=== PATIENT | female | born 1965 | race African-American/Black ===

== ENCOUNTER 2022-04-15 11:15 | Outpatient (REF) | payer OTHER, SELFPAY ==
[2022-04-15 13:44] LABS: Hematocrit 40.2 % (37.0-47.0); Hemoglobin 13.2 g/dl (12.0-16.0); Mean Corpuscular HGB Conc 32.8 g/dl (31.0-35.0); Mean Corpuscular Hemoglobin 26.7 pg (27.0-33.0); Mean Corpuscular Volume 81.4 fL (80.0-98.0); Mean Platelet Volume 12.3 fL (9.4-12.3); Platelet Count 172 X10*3/uL (160-400); Red Blood Count 4.94 X10*6/uL (4.20-5.50); White Blood Count 5.4 X10*3/uL (4.8-10.8)
[2022-04-15 13:59] LABS: Estimated Average Glucose 249 mg/dL; Hemoglobin A1c % 10.3 %
[2022-04-15 14:01] LABS: Alanine Aminotransferase 20 U/L (0-31); Albumin Level 4.8 g/dL (3.5-5.0); Alkaline Phosphatase 65 U/L (39-117); Anion Gap 15 (12-20); Aspartate Amino Transferase 19 U/L (5-31); Blood Urea Nitrogen 14 mg/dL (9-16); Calcium 10.4 mg/dL (8.4-10.2); Carbon Dioxide 28 mmol/L (22-29); Chloride 101 mmol/L (96-108); Cholesterol 265 mg/dL; Estimated Glomerular Filt Rate > 60; Glucose Fasting 229 mg/dL (60-99); HDL Cholesterol 62 mg/dL; LDL Cholesterol Calculated 168 mg/dl; Potassium 4.7 mmol/L (3.3-5.1); Sodium 139 mmol/L (135-145); Total Protein 8.3 g/dL (6.5-8.0); Triglycerides 176 mg/dL
[2022-04-15 14:35] LABS: Creatinine Urine 36.73 mg/dL; Microalbumin Urine < 5.0 mg/L
[2022-04-15 14:40] LABS: Thyroid Stimulating Hormone 0.95 uIU/mL (0.32-4.0)
== END 2022-04-15 11:16 | disposition home or self-care (01) ==
LOC: HO.10HDL 11:15
PROVIDERS: Visit Provider Internal Medicine
DX: Z00.01 Encounter for general adult medical examination with abnormal findings (principal); I10 Essential (primary) hypertension; E78.00 Pure hypercholesterolemia, unspecified; E11.65 Type 2 diabetes mellitus with hyperglycemia; E11.40 Type 2 diabetes mellitus with diabetic neuropathy, unspecified
CPT/HCPCS: 36415; 80053; 80061; 82043; 83036; 84443; 85027

== ENCOUNTER 2022-10-20 10:02 | Outpatient (REF) | payer OTHER, SELFPAY ==
[2022-10-20 12:32] LABS: Estimated Average Glucose 160 mg/dL; Hemoglobin A1c % 7.2 %
[2022-10-20 12:38] LABS: Alanine Aminotransferase 28 U/L (0-31); Alkaline Phosphatase 69 U/L (39-117); Anion Gap 12 (12-20); Aspartate Amino Transferase 24 U/L (5-31); Blood Urea Nitrogen 11 mg/dL (9-16); Calcium 9.1 mg/dL (8.4-10.2); Carbon Dioxide 27 mmol/L (22-29); Chloride 105 mmol/L (96-108); Cholesterol 127 mg/dL; Estimated Glomerular Filt Rate > 60; Glucose Random 120 mg/dL (60-115); HDL Cholesterol 56 mg/dL; LDL Cholesterol Calculated 60 mg/dl; Potassium 4.2 mmol/L (3.3-5.1); Sodium 140 mmol/L (135-145); Total Protein 6.8 g/dL (6.5-8.0); Triglycerides 56 mg/dL
== END 2022-10-20 10:03 | disposition home or self-care (01) ==
LOC: HO.WFDLDS 10:02
PROVIDERS: Visit Provider Internal Medicine
DX: E11.9 Type 2 diabetes mellitus without complications (principal); E78.00 Pure hypercholesterolemia, unspecified; G56.00 Carpal tunnel syndrome, unspecified upper limb; I10 Essential (primary) hypertension
CPT/HCPCS: 36415; 80053; 80061; 83036

== ENCOUNTER 2022-12-11 09:56 | Outpatient (REF) | payer OTHER, SELFPAY ==
--- NOTE | 2022-12-11 10:08 | EMG_ITS ---
Bilateral median and ulnar motor and sensory studies were performed. Bilateral radial sensory studies were performed, and paraspinal muscles were tested with a needle. IMPRESSION: 1. Moderately severe bilateral median neuropathy across carpal tunnel. 2. [id number]-[id number] left ulnar neuropathy across cubital tunnel. MD NAVEED Jasmine/ROLANDO / [id number]
== END 2022-12-11 09:57 | disposition home or self-care (01) ==
LOC: HO.NEURO 09:56
PROVIDERS: PCP Internal Medicine; Visit Provider Internal Medicine
DX: G56.03 Carpal tunnel syndrome, bilateral upper limbs (principal)
CPT/HCPCS: 95886; 95911

== ENCOUNTER 2023-03-18 08:56 | Outpatient (AMB) | payer OTHER, SELFPAY ==
--- NOTE | 2023-03-18 09:02 | MHC.OFFVIS ---
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 States symptoms started about 3 years ago and has worsen since. Patient has not had an injection in her hands in the past . States her CTS comes and goes thought out the day time. EMG done. Patient would like to discuss surgery vs injection. 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 She is accompanied by her daughter today, who acts as a dry cleaner hand She complains of numbness in the median nerve distribution bilaterally. She denies numbness in the ulnar nerve distribution bilaterally. Her symptoms are intermittent, but daily, and worse at night. She says her numbness began ~3 years ago, and she denies any prior treatment. [facility] Social History (Updated 03/18/23 @ 09:17 by EMHRDAD Munroe) Current occupational status: unemployed Current occupation: ambidextrous Review of Systems Const All systems reviewed & are unremarkable except as noted in HPI and below Physical Exam Vital Signs: BMI result Body Mass Index 25.2 Const General: cooperative, healthy appearing and no acute distress Orientation/consciousness: patient oriented x3 HEENT Head: Yes normocephalic and Yes atraumatic Eyes EOM: EOMs intact bilaterally Resp Effort & Inspection: normal respiratory effort and able to speak in complete sentences Cardio Jugular venous distension: no JVD Skin General skin exam: turgor normal Rashes: no rashes Neuro General: patient oriented x3 Extrem Other: Evaluation of Bilateral Upper Extremity: The patient is alert, oriented, and in no acute distress Neuro: Decreased subjective sensation in the median nerve distribution bilaterally. Normal sensation in the ulnar nerve distribution bilaterally No thenar or intrinsic wasting Good APB muscle belly firing and good finger cross Vascular: Cap refill brisk ROM: She can make a fist and extend all her digits No locking or catching Skin: No lacerations or abrasions. General: No Ecchymosis. No Erythema or evidence of infection. Nerve Conduction Study: IMPRESSION:? 1. Moderately severe bilateral median neuropathy across carpal tunnel. 2. Hypt-lk-[id number] left ulnar neuropathy across cubital tunnel. Ana Lilia Funez MD 12/11/2022 Psych Appearance: grossly normal Affect: normal affect Attitude: cooperative Assessment & Plan Assessment & Plan (1) Carpal tunnel syndrome of right wrist: Code(s): G56.01 - Carpal tunnel syndrome, right upper limb (2) Carpal tunnel syndrome of left wrist: Code(s): G56.02 - Carpal tunnel syndrome, left upper limb (3) Cubital tunnel syndrome on left: Code(s): G56.22 - Lesion of ulnar nerve, left upper limb Plan Assessment & Plan: 1. Left Carpal tunnel syndrome, moderate-severe Symptoms intermittent, but daily, worse at night 2. LRight Carpal tunnel syndrome, moderate-severe Symptoms intermittent, but daily, worse at night I educated her about this condition I discussed operative and non-operative treatment options The patient would like to proceed with surgery, beginning with the left side The risks and benefits of operative treatment were discussed with the patient and the patient wishes to proceed with surgery. These risks include, but are not limited to risk of damage to blood vessels, nerves, tendons, infection, recurrence, incomplete relief of preoperative symptoms, persistent pain, possible need for further surgery and the risks associated with regional blocks and anesthesia. The plan is to take the patient to the operating room sometime in the next few weeks for the following procedures: 1. Left carpal tunnel release, under local All of the preoperative paperwork including the consent was filled out today. All the patient's questions were answered. The patient understands that they will be contacted by our care team coordinator scheduler soon to schedule this procedure She denies blood thinners, asthma, heart, lung, kidney issues She is a Diabetic, her most recent HgA1c was 7.2% on 10/20/22 3. Left Cubital tunnel syndrome, mild to moderate Patient denies any problems with numbness in the ulnar aspect of her left hand or small finger If she develops any new numbness or if her symptoms increase in frequency or severity she knows to contact the clinic to discuss treatment options Scribed for Kiersten Coats MD by Modesto Pozo, director medical safety, on 8/23/23 at 9:20 AM, EST. Coding Level of Care Code New Pt Level 4 (89822) Diagnoses Carpal tunnel syndrome of right wrist G56.01 Carpal tunnel syndrome of left wrist G56.02 Cubital tunnel syndrome on left G56.22
[2023-03-18 09:09] VITALS: BMI 25.2
== END 2023-03-18 09:52 | disposition home or self-care (01) ==
PROVIDERS: PCP Internal Medicine; Visit Provider Orthopaedic Surgery
DX: G56.03 Carpal tunnel syndrome, bilateral upper limbs (principal); G56.22 Lesion of ulnar nerve, left upper limb
CPT/HCPCS: 99204

== ENCOUNTER → 2023-03-18 08:56 | Outpatient (BNVA) | payer OTHER, SELFPAY | PROVIDERS: PCP Internal Medicine; Visit Provider Orthopaedic Surgery | DX: G56.03 Carpal tunnel syndrome, bilateral upper limbs (principal); G56.22 Lesion of ulnar nerve, left upper limb | CPT/HCPCS: 99202 ==

== ENCOUNTER 2023-04-20 11:20 | Day surgery (SDC) | payer OTHER, SELFPAY ==
[2023-04-20 11:50] VITALS: BMI 25.2
[2023-04-20 11:51] VITALS: BP 135/70; PULSE 86; RESP 16; TEMP 36.3; O2SAT 98
--- NOTE | 2023-04-20 12:12 | MHC.SHP ---
Pre-Procedural Eval Section A Date of Service: 04/20/23 The patient is an INPATIENT: No Changes since office visit: No Cold of Flu in the past 2 weeks, No New Medical Problems, No Changes in Medication and No Patient answered all questions The History & Physical has been completed within 30 days and I have reviewed it.: Yes Section B Chief Complaint: Carpal tunnel syndrome, left upper limb Allergies: Allergies Allergy/AdvReac Type Severity Reaction Status Date / Time No Known Allergies Allergy Verified 03/18/23 09:16 Plan I have reviewed the history and physical and performed a pertinent physical examination on my patient. No changes have occurred unless specified. Time Spent With Patient Time: Total time managing care of this patient today ____ minutes.
--- NOTE | 2023-04-20 12:12 | W.PM.OPN ---
Operative Note Operative Note Date of Service: 04/20/23 Narrative: Preop diagnosis: 1. Left Carpal tunnel syndrome Postop diagnosis: same Procedure: 1. Left Carpal tunnel release Surgeon: Kiersten Coats MD Anesthesia: local block using 1% lidocaine with epinephrine Findings: Thickened transverse carpal ligament. EBL: Less than 5 mL Specimens: None Complications: None Disposition: Brought to recovery room in stable condition Plan: Follow-up for 10-14 days for wound check and suture removal Indications: The patient is 57 years old, with left carpal tunnel syndrome that has been unresponsive to nonoperative management. The risks and benefits of operative treatment including but not limited to risk of damage to blood vessels, nerves, tendons, infection, persistent pain, persistent symptoms, or possible need for additional surgery were discussed with the patient and the patient wishes to proceed with surgery. Procedure: Once consent was obtained a local block was performed using a combination of 1% lidocaine with epinephrine. The patient was then brought back to the operating suite and placed on the operative table in supine position. The left upper extremity was prepped and draped in a standard surgical fashion. Once assured that we had a good block, a 2.0 cm longitudinal incision was made centered over the carpal tunnel. The incision was made through the skin to the subcutaneous tissues using a #15 blade. Dissection was made down to the level of the transverse carpal ligament with care being taken to protect the palmar cutaneous nerve. Once the transverse carpal ligament was clearly visualized, a longitudinal incision was made in the transverse carpal ligament 1st using a #15 blade, then using tenotomy scissors under direct visualization. Care was taken to look for and protect the motor branch of the median nerve when seen in this area. Once satisfied with our carpal tunnel release the wound was copiously irrigated with normal saline and hemostasis was obtained with a brief period of local pressure. The skin edges were reapproximated with some 5.0 nylon suture material and a sterile dressing was applied. The patient appears to have tolerated the procedure well and with no complications. All digits were well vascularized at the conclusion of the case.
== END 2023-04-20 14:28 | disposition home or self-care (01) ==
PROVIDERS: PCP Internal Medicine; Visit Provider Orthopaedic Surgery
PROC: (CPT 64721; principal; 2023-04-20 12:30)
DX: G56.02 Carpal tunnel syndrome, left upper limb (principal); R20.0 Anesthesia of skin; R20.2 Paresthesia of skin; E11.9 Type 2 diabetes mellitus without complications
CPT/HCPCS: 64721; J0171

== ENCOUNTER → 2023-04-20 11:20 | Outpatient (BNV) | payer OTHER, SELFPAY | PROVIDERS: PCP Internal Medicine; Visit Provider Orthopaedic Surgery | DX: G56.02 Carpal tunnel syndrome, left upper limb (principal) | CPT/HCPCS: 64721 ==

== ENCOUNTER 2023-05-05 11:30 | Outpatient (AMB) | payer OTHER, SELFPAY ==
--- NOTE | 2023-05-05 11:54 | MHC.OFFVIS ---
Intake Vital Signs 05/05/23 11:55 Height 5 ft 4 in Weight 147 lb BMI 25.2 Intake Visit Reasons: PO LT CTR 04/20/23AR Intake Note: Soo 57 yr old female presents today for her Post operative visit for her left hand CTR 04/20/[address] Coats. States numbness has improved however she is now experiencing numbness in her left ring and pinky finger. Sutures and strips applied. Allergies No Known Allergies Allergy (Verified 05/05/23 11:55) HPI PO LT CTR 04/20/23AR HPI Details Soo is a 57 year old right hand dominant [place] Island[place] speaking woman who presents S/P left carpal tunnel release, DOS: 04/20/23. She is accompanied by her daughter today, who acts as a trailer mechanic She says her numbness has improved and she now has normal sensation. Her daughter says she had one night recently where she had some numbness in the ring & small fingers Concerning her right hand she continues to have dense numbness, worse at night. [facility] Social History Current occupational status: unemployed Current occupation: ambidextrous Review of Systems Const All systems reviewed & are unremarkable except as noted in HPI and below Physical Exam Vital Signs: BMI result Body Mass Index 25.2 Const General: no acute distress and alert Orientation/consciousness: patient oriented x3 Neuro General: patient oriented x3 Extrem Other: The patient was alert oriented and in no acute distress The incision is healing well with no erythema drainage or evidence of infection. Sutures removed and Steri-Strips applied She can make a fist and extend all her digits Sensation is normal in the median nerve distribution of the left hand. Dense numbness in the median nerve distribution of her right hand Normal sensation to the ulnar nerve distribution bilaterally today in clinic Cap refill is brisk Nerve Conduction Study: IMPRESSION:? 1. Moderately severe bilateral median neuropathy across carpal tunnel. 2. Lhyj-rl-qjnjjuwz left ulnar neuropathy across cubital tunnel. Ana Lilia Funez MD 12/11/2022 Psych Appearance: grossly normal Affect: normal affect Attitude: cooperative Assessment & Plan Assessment & Plan (1) Carpal tunnel syndrome of right wrist: Code(s): G56.01 - Carpal tunnel syndrome, right upper limb (2) Carpal tunnel syndrome of left wrist: Code(s): G56.02 - Carpal tunnel syndrome, left upper limb (3) Cubital tunnel syndrome on left: Code(s): G56.22 - Lesion of ulnar nerve, left upper limb Plan Assessment & Plan: 1. Left Carpal tunnel syndrome, moderate-severe Pre-operative symptoms intermittent, but daily, worse at night Now with normal sensation, and nighttime symptoms have resolved The patient appears to be doing well post-operatively I educated her about the post-operative course I explained the signs and symptoms of infection, if the patient develops any new or worsening erythema, drainage, pain, or warmth they should contact the clinic or attend the ED. I discussed activity modifications, she is to lift nothing heavier than a cellphone for the next two weeks She will perform gentle ROM exercises at home She should avoid any underwater activities for the next 5 days She should gently massage about the incision site to reduce the risk of hypersensitivity 2. Right Carpal tunnel syndrome, moderate-severe Symptoms intermittent, but daily, worse at night I educated her about this condition I discussed operative and non-operative treatment options The patient would like to proceed with surgery, beginning with the left side The risks and benefits of operative treatment were discussed with the patient and the patient wishes to proceed with surgery. These risks include, but are not limited to risk of damage to blood vessels, nerves, tendons, infection, recurrence, incomplete relief of preoperative symptoms, persistent pain, possible need for further surgery and the risks associated with regional blocks and anesthesia. The plan is to take the patient to the operating room sometime in the next few weeks for the following procedures: 1. Right carpal tunnel release, under local All of the preoperative paperwork including the consent was filled out today. All the patient's questions were answered. The patient understands that they will be contacted by our team leader surgery soon to schedule this procedure She denies blood thinners, asthma, heart, lung, kidney issues She is a Diabetic, her most recent HgA1c was 7.2% on 10/20/22 3. Left Cubital tunnel syndrome, mild to moderate Symptoms intermittent and occasional If she develops any new numbness or if her symptoms increase in frequency or severity she knows to contact the clinic to discuss treatment options Scribed for Kiersten Coats MD by Modesto Pozo, healthcare or medical, on 05/05/23 at 12:20 PM, EST. Coding Level of Care Code Est Pt Level 4 (89680) Diagnoses Carpal tunnel syndrome of right wrist G56.01 Carpal tunnel syndrome of left wrist G56.02 Cubital tunnel syndrome on left G56.22
[2023-05-05 11:55] VITALS: BMI 25.2
== END 2023-05-05 13:17 | disposition home or self-care (01) ==
PROVIDERS: PCP Internal Medicine; Visit Provider Orthopaedic Surgery
DX: G56.02 Carpal tunnel syndrome, left upper limb (principal); G56.01 Carpal tunnel syndrome, right upper limb; G56.22 Lesion of ulnar nerve, left upper limb
CPT/HCPCS: 99214

== ENCOUNTER → 2023-05-05 11:30 | Outpatient (BNVA) | payer OTHER, SELFPAY | PROVIDERS: PCP Internal Medicine; Visit Provider Orthopaedic Surgery | DX: Z48.811 Encounter for surgical aftercare following surgery on the nervous system (principal); G56.01 Carpal tunnel syndrome, right upper limb; G56.22 Lesion of ulnar nerve, left upper limb | CPT/HCPCS: 99212 ==

== ENCOUNTER 2023-08-03 11:54 | Day surgery (SDC) | payer OTHER, SELFPAY ==
--- NOTE | 2023-08-03 09:17 | W.PM.OPN ---
Operative Note Operative Note Date of Service: 08/03/23 Narrative: Preop diagnosis: 1. right Carpal tunnel syndrome Postop diagnosis: same Procedure: 1. right Carpal tunnel release Surgeon: Kiersten Coats MD Anesthesia: local block using 1% lidocaine with epinephrine Findings: Thickened transverse carpal ligament. EBL: Less than 5 mL Specimens: None Complications: None Disposition: Brought to recovery room in stable condition Plan: Follow-up for 10-14 days for wound check and suture removal Indications: The patient is 58 years old, with right carpal tunnel syndrome that has been unresponsive to nonoperative management. The risks and benefits of operative treatment including but not limited to risk of damage to blood vessels, nerves, tendons, infection, persistent pain, persistent symptoms, or possible need for additional surgery were discussed with the patient and the patient wishes to proceed with surgery. Procedure: Once consent was obtained a local block was performed using a combination of 1% lidocaine with epinephrine. The patient was then brought back to the operating suite and placed on the operative table in supine position. The right upper extremity was prepped and draped in a standard surgical fashion. Once assured that we had a good block, a 2.0 cm longitudinal incision was made centered over the carpal tunnel. The incision was made through the skin to the subcutaneous tissues using a #15 blade. Dissection was made down to the level of the transverse carpal ligament with care being taken to protect the palmar cutaneous nerve. Once the transverse carpal ligament was clearly visualized, a longitudinal incision was made in the transverse carpal ligament 1st using a #15 blade, then using tenotomy scissors under direct visualization. Care was taken to look for and protect the motor branch of the median nerve when seen in this area. Once satisfied with our carpal tunnel release the wound was copiously irrigated with normal saline and hemostasis was obtained with a brief period of local pressure. The skin edges were reapproximated with some 5.0 nylon suture material and a sterile dressing was applied. The patient appears to have tolerated the procedure well and with no complications. All digits were well vascularized at the conclusion of the case.
[2023-08-03 12:13] VITALS: BMI 26.2
[2023-08-03 13:38] VITALS: BP 139/83; PULSE 71; RESP 16; TEMP 36.2; O2SAT 98
--- NOTE | 2023-08-03 14:24 | MHC.SHP ---
Pre-Procedural Eval Section A Date of Service: 08/03/23 The patient is an INPATIENT: No Changes since office visit: No Cold of Flu in the past 2 weeks, No New Medical Problems, No Changes in Medication and No Patient answered all questions The History & Physical has been completed within 30 days and I have reviewed it.: Yes Section B Chief Complaint: Carpal tunnel syndrome, right upper limb Allergies: Allergies Allergy/AdvReac Type Severity Reaction Status Date / Time No Known Allergies Allergy Verified 08/03/23 12:13 Plan I have reviewed the history and physical and performed a pertinent physical examination on my patient. No changes have occurred unless specified. Time Spent With Patient Time: Total time managing care of this patient today ____ minutes.
== END 2023-08-03 15:03 | disposition home or self-care (01) ==
PROVIDERS: PCP Internal Medicine; Visit Provider Orthopaedic Surgery
PROC: (CPT 64721; principal; 2023-08-03 13:00)
DX: G56.01 Carpal tunnel syndrome, right upper limb (principal); R20.0 Anesthesia of skin; E11.9 Type 2 diabetes mellitus without complications
CPT/HCPCS: 64721; J0171; J0665

== ENCOUNTER → 2023-08-03 11:54 | Outpatient (BNV) | payer OTHER, SELFPAY | PROVIDERS: PCP Internal Medicine; Visit Provider Orthopaedic Surgery | DX: G56.01 Carpal tunnel syndrome, right upper limb (principal) | CPT/HCPCS: 64721 ==

== ENCOUNTER 2023-08-19 11:26 | Outpatient (AMB) | payer OTHER, SELFPAY ==
--- NOTE | 2023-08-19 11:36 | A.OFFVIS_ITS ---
Intake Intake Visit Reasons: PO-Rt CTR 08/03/23 Intake Note: Soo a 58 year old female presents today for a post operative right CTR on 08/03/23 AR. Patient reports she is doing well, states numbness and tingling has subsided. States mild pain at incision area. Allergies No Known Allergies Allergy (Verified 08/19/23 11:46) HPI PO-Rt CTR 08/03/23 HPI Details 58-year-old female who returns to the [facility] today for post-op right CTR, 08/03/[address] Coats. She states she has improvement in her numbness and is doing well overall. She has no other concerns today. [facility] Medical History (Updated 08/03/23 @ 12:23 by Jennifer Huitron RN) DM type 2 (diabetes mellitus, type 2) Social History Comment: counts correct Current occupational status: unemployed Current occupation: ambidextrous Review of Systems Const All systems reviewed & are unremarkable except as noted in HPI and below Physical Exam Extrem Other: Right wrist: Incision clean, dry and intact. No erythema or drainage. She has no numbness on exam. Assessment & Plan Assessment & Plan (1) Carpal tunnel syndrome of left wrist: Code(s): G56.02 - Carpal tunnel syndrome, left upper limb Plan Sutures removed today, steri strips applied. She will continue to increase activity as tolerated. I did recommend her to keep the area clean and dry if she gets it wet under the shower but not submerge underwater for long periods of time. If symptoms persist or worsens, patient will contact the office, otherwise follow-up as needed. Patient Instructions: Scribed for Jeramy Rodriguez PA-C, by Jacky Robledo medical unit secretary, on 08/19/2023 at 11:30 AM EST. I, Jeramy Rodriguez PA-C, have personally reviewed and agree with the information entered by the scribe. Coding Level of Care Code Global (17506) Diagnoses Carpal tunnel syndrome of left wrist G56.02
== END 2023-08-19 11:59 | disposition home or self-care (01) ==
PROVIDERS: PCP Internal Medicine; Visit Provider Physician Assistant
DX: G56.01 Carpal tunnel syndrome, right upper limb (principal)
CPT/HCPCS: 99024

== ENCOUNTER → 2023-08-19 11:26 | Outpatient (BNVA) | payer OTHER, SELFPAY | PROVIDERS: PCP Internal Medicine; Visit Provider Physician Assistant | DX: G56.02 Carpal tunnel syndrome, left upper limb (principal) | CPT/HCPCS: 99212 ==

== ENCOUNTER 2024-08-01 09:58 | Outpatient (RCR) | payer OTHER, SELFPAY ==
--- NOTE | 2024-08-01 15:05 | MHC.PT.DC ---
[facility] [place] [facility] [place] [facility] [place] [facility] [address] Claudine Encarnacion [address] [phone] F: [phone] F: [phone] F: [phone] F: [phone] Physical Therapy Discharge Report Diagnosis: LEFT SHOULDER PAIN (KP) Date of Surgery: N/A Date of Evaluation: 06/30/24 Date of Discharge: 08/01/24 Treatments to Date: 5 Cancellations to Date: 0 No Shows to Date: 0 Discharge Status: Improved Function Independent with HEP Discharge Summary: Pt has made good progress since SOC. She has had a decrease in symptoms and has demonstrated improvements in ROM and strength. We reviewed HEP today and I provided pt with printed, updated copy of HEP. Pt is being D/C from skilled PT today and is in agreement with this plan. She reports no further questions or concerns for PT at time of D/C Electronically signed by: Marina Anderson, PT, DPT Please sign and return to therapist. Thank you for your referral.
== END 2024-08-01 15:05 | disposition home or self-care (01) ==
LOC: HO.PT 09:58
PROVIDERS: PCP Internal Medicine; Visit Provider Internal Medicine
DX: M25.512 Pain in left shoulder (principal)
CPT/HCPCS: 97110; 97140; 97161

== ENCOUNTER 2024-12-05 15:10 | Outpatient (AMB) | payer OTHER, SELFPAY ==
--- NOTE | 2024-12-05 15:28 | A.OFFVIS_ITS ---
Vital Signs 12/05/24 15:40 Height 5 ft 1 in Weight 150 lb 8 oz BMI 28.4 BP 146/76 H Blood Pressure Location Rt brachial Position Sitting Pulse 88 Pulse Source Pulse Oximeter Pulse Oximetry (%) 97 Oxygen Delivery Method Room Air Intake Visit Reasons: colo screening Intake Note: NEW PATIENT for initial colo screening. Chief Complaint; Pt denies any GI sx or concerns at this time. Post Doctoral Researcher Required: Yes Post Doctoral Researcher Services: Post Doctoral Researcher Offered & Declined Accompanied by: Family/Other Allergies No Known Allergies Allergy (Verified 12/05/24 15:30) HPI HPI colo screening: Details: 59 year old? female here today for pre colonoscopy screening.? Patient was sent to us by her PCP.? This is her first colonoscopy screening.? Patient denies any gastrointestinal symptoms in the past or at present.? Denies any personal or family history of gastrointestinal disease, colon polyps, or CRC.? Denies history of difficulty with sedation or anesthesia in the past.? Negative for history of sleep apnea.? Denies any history of cardiac, renal, pulmonary, or hepatic disease.?? No history of infectious? diseases like hepatitis A, B, C, HIV or tuberculosis.? Patient is on low dose aspirin [facility] Medical History (Updated 12/05/24 @ 19:23 by Keshia Arzola, [facility]-) Hyperlipidemia HTN (hypertension) Carpal tunnel syndrome, bilateral DM type 2 (diabetes mellitus, type 2) Social History Comment: counts correct Current occupational status: unemployed Current occupation: ambidextrous Review of Systems Const Denies weight gain and Denies weight loss ENT Reports no additional complaints, Denies dysphagia and Denies odynophagia Card Reports no additional complaints Resp Reports no additional complaints GI Denies abdominal pain, Denies belching, Denies melena, Denies bloating, Denies change in bowel habits, Denies dysphagia, Denies excessive flatus, Denies dyspepsia, Denies heartburn, Denies diarrhea, Denies loose stools, Denies nausea, Denies odynophagia and Denies vomiting Reports no additional complaints Musc Reports no additional complaints Neuro Reports no additional complaints Psych Reports no additional complaints Endo Reports no additional complaints Physical Exam Vital Signs: Last Vital Signs Pulse 88 12/05/24 15:40 BP 146/76 H 12/05/24 15:40 Pulse Ox 97 12/05/24 15:40 Oxygen Delivery Method Room Air 12/05/24 15:40 BMI result Body Mass Index 28.4 Const General: healthy appearing, no acute distress and well developed Nutritional Appearance: well nourished Orientation/consciousness: patient oriented x3 Resp Effort & Inspection: normal respiratory effort, able to speak in complete sentences, no tracheal deviation and symmetric chest movement Auscultation: clear to auscultation bilaterally Cardio Rate: regular rate GI Inspection: Yes normal to inspection and No distended Palpation (GI): Soft to palpation, not firm, nontender and No hepatosplenomegaly present Auscultation: normal bowel sounds General: Yes no CVA tenderness Back/Spine/Pelvis Back: no CVA tenderness Skin General skin exam: elasticity normal, turgor normal and dry skin Neuro General: patient oriented x3 Psych Appearance: grossly normal Mental Status: mental status grossly normal Assessment & Plan Assessment & Plan (1) Screen for colon cancer: Code(s): Z12.11 - Encounter for screening for malignant neoplasm of colon Plan Patient denies any GI, cardiac or respiratory symptoms.? Denies any issues with anesthesia in the past.? Denies any history of sleep apnea.? No history infectious diseases in the past or present.? Patient is on low-dose aspirin.? No family or personal history of colon cancer or polyps.? Patient denies melena, hematochezia, unintentional weight loss or ribbon like stools.? Discussed at length the pre-procedure,? prep, diet & medications as well as what to expect prior, during and after the procedure.?? Stressed the importance of good bowel prep.? Recommended the use of Vaseline or Calmoseptine OTC & baby wipes with bowel movements to promote comfort.? ?Patient verbalizes understanding and agrees to plan of care.? She was given the opportunity to ask questions and all questions answered.? We will see her after the procedure.? Medications: New bisacodyl (Dulcolax (bisacodyl)) take 4 tabs at noon the day before your colonoscopy 20 mg (4 x 5 mg) PO ONCE 1 day 4 tabs 0RF Z12.11 - Encounter for screening for malignant neoplasm of colon polyethylene glycol 3350 (Miralax) As directed by gastroenterology department at [facility] 238 grams PO ONCE 238 grams 0RF Z12.11 - Encounter for screening for malignant neoplasm of colon polyethylene glycol 3350 (Miralax) 17 grams PO DAILY 510 grams 2RF Coding Level of Care Code New Pt Level 3 (25084) Diagnoses Screen for colon cancer Z12.11 Time Spent (min) 40 Comment 30 minutes spent with patient and additional 10 minutes spent reviewing her records
[2024-12-05 15:40] VITALS: BP 146/76; PULSE 88; O2SAT 97; BMI 28.4
== END 2024-12-05 16:10 | disposition home or self-care (01) ==
PROVIDERS: PCP Internal Medicine; Visit Provider Nurse Practitioner Family
DX: Z01.818 Encounter for other preprocedural examination (principal); Z12.11 Encounter for screening for malignant neoplasm of colon
CPT/HCPCS: 99202

== ENCOUNTER → 2024-12-05 15:10 | Outpatient (BNVA) | payer OTHER, SELFPAY | PROVIDERS: PCP Internal Medicine; Visit Provider Nurse Practitioner Family | DX: Z12.11 Encounter for screening for malignant neoplasm of colon (principal) | CPT/HCPCS: 99202 ==

== ENCOUNTER 2025-05-01 11:02 | Outpatient (REF) | payer OTHER, SELFPAY ==
[2025-05-01 12:32] LABS: Alanine Aminotransferase 33 U/L (0-31); Albumin Level 4.7 g/dL (3.5-5.0); Alkaline Phosphatase 49 U/L (39-117); Anion Gap 11 (12-20); Aspartate Amino Transferase 48 U/L (5-31); Blood Urea Nitrogen 11 mg/dL (9-16); Calcium 9.5 mg/dL (8.4-10.2); Carbon Dioxide 29 mmol/L (22-29); Chloride 105 mmol/L (96-108); Cholesterol 128 mg/dL (<200); Estimated Glomerular Filt Rate > 60; HDL Cholesterol 56 mg/dL (>40); Potassium 4.1 mmol/L (3.3-5.1); Sodium 141 mmol/L (135-145); Total Protein 7.6 g/dL (6.5-8.0); Triglycerides 53 mg/dL (<150)
[2025-05-01 12:58] LABS: HBS Num1 > 1000.00 mIU/mL (0-7.99); HBc Num1 11.22 S/CO (0.00-0.79); HBsAGNum1 0.36 S/CO (0.00-0.99); Hepatitis B Surface Antigen Negative (Negative); ~Hepatitis B Surface Antibody REACTIVE (Nonreactive)
[2025-05-01 13:48] LABS: HBc Num2 11.48 S/CO; HBc Num3 11.65 S/CO
== END 2025-05-01 11:03 | disposition home or self-care (01) ==
LOC: HO.LAB 11:02
PROVIDERS: PCP Internal Medicine; Visit Provider Internal Medicine
DX: E11.9 Type 2 diabetes mellitus without complications (principal); R74.01 Elevation of levels of liver transaminase levels; B37.32 Chronic candidiasis of vulva and vagina; G47.00 Insomnia, unspecified; K59.00 Constipation, unspecified; Z11.59 Encounter for screening for other viral diseases
CPT/HCPCS: 80053; 80061; 82043; 82570; 83036; 86704; 86706; 86803; 87340

== ENCOUNTER 2025-06-29 07:01 | Day surgery (SDC) | payer OTHER, SELFPAY ==
--- NOTE | 2025-06-27 09:07 | HO.ANESPROP2 ---
Documented by User: Radha Johnson NP 06/27/25 09:07 HPI - Anesthesia Eval Consult details Narrative: 60 yr old female for colonoscopy Anesthesia Pre-Procedure Meds Is the patient on any of the following meds?: SGLT2 Inhib PMFSH Active Problems Active Problems: All Active Problems Cubital tunnel syndrome on left (Acute) Carpal tunnel syndrome of left wrist (Acute) Carpal tunnel syndrome of right wrist (Acute) Past Medical History Medical History Hyperlipidemia HTN (hypertension) Carpal tunnel syndrome, bilateral DM type 2 (diabetes mellitus, type 2) Social History Social History Comment: counts correct Advance Directives: No Advance Directives Information Provided: Yes Current occupational status: unemployed Current occupation: ambidextrous Meds Allergies Allergy/AdvReac Type Severity Reaction Status Date / Time No Known Allergies Allergy Verified 12/05/24 15:30 Home Medications ?Medication ?Instructions ?Recorded ?Confirmed ?Last Taken ?Type atorvastatin 80 mg tablet 80 mg PO BEDTIME 03/18/23 06/27/25 Unknown History gabapentin 100 mg capsule 100 mg PO TID 03/18/23 06/27/25 08/03/23 History glipizide 10 mg tablet, extended 10 mg PO DAILY 03/18/23 06/27/25 Unknown History release 24 hr lancets 33 gauge (OneTouch Delraissa #100 ea 03/18/23 06/27/25 Unknown History Plus Lancet) losartan 25 mg tablet 25 mg PO DAILY 03/18/23 06/27/25 Unknown History metformin 750 mg tablet,extended 750 mg PO BID 03/18/23 06/27/25 08/03/23 History release 24 hr sitagliptin phosphate 100 mg 100 mg PO DAILY 03/18/23 06/27/25 Unknown History tablet (Januvia) Documented by User: Seble Dee MD 06/29/25 07:55 PMF Past Medical History Medical History Hyperlipidemia HTN (hypertension) Carpal tunnel syndrome, bilateral DM type 2 (diabetes mellitus, type 2) Surgical History History of Problems with Anesthesia: No Social History Social History Comment: counts correct Advance Directives: No Advance Directives Information Provided: Yes Current occupational status: unemployed Current occupation: ambidextrous Meds Allergies Allergy/AdvReac Type Severity Reaction Status Date / Time No Known Allergies Allergy Verified 12/05/24 15:30 Home Medications ?Medication ?Instructions ?Recorded ?Confirmed ?Last Taken ?Type atorvastatin 80 mg tablet 80 mg PO BEDTIME 03/18/23 06/27/25 Unknown History gabapentin 100 mg capsule 100 mg PO TID 03/18/23 06/27/25 08/03/23 History glipizide 10 mg tablet, extended 10 mg PO DAILY 03/18/23 06/27/25 Unknown History release 24 hr lancets 33 gauge (AloricaTouch Delica #100 ea 03/18/23 06/27/25 Unknown History Plus Lancet) losartan 25 mg tablet 25 mg PO DAILY 03/18/23 06/27/25 Unknown History metformin 750 mg tablet,extended 750 mg PO BID 03/18/23 06/27/25 08/03/23 History release 24 hr sitagliptin phosphate 100 mg 100 mg PO DAILY 03/18/23 06/27/25 Unknown History tablet (Januvia) Exam Airway Mallampati Class: II TM Dist: >3cm Neck ROM: Full Loose/Missing/Broken Teeth: No Heart: RRR Lungs: CTA Assessment and Plan Assessment Anesthesia Assessment: Anesthesia Plan Discussed and Chart Reviewed Final Anesthetic Review History of Problems with Anesthesia: No NPO: Yes ASA Class: II Final Preanesthetic Review: Meds/Allgs Chart Reviewed, Consent Obtained/Reviewed and Anes Risks/Benef Reviewed Patient Risk: Low Procedure Risk: Low Anesthetic Plan Anesthetic Plan: MAC: Disposition: Standard PACU
[2025-06-27 13:41] VITALS: BMI 28.3
[2025-06-29 07:06] VITALS: BMI 28.0
[2025-06-29 07:34] LABS: Glucose, Whole Blood 137 mg/dL (60-115)
[2025-06-29] MEDS: Lactated Ringers 1,000 ML 100 ML IVCONT (07:37)
[2025-06-29 07:38] VITALS: BP 133/77; PULSE 98; RESP 18; TEMP 36.6; O2SAT 98
--- NOTE | 2025-06-29 08:06 | P.HPSUR_ITS ---
Pre-Procedural Eval Section A - 24 Hr Update-Section A only Date of Service: 06/29/25 Section B - Complete if H&P > 30 days Chief Complaint: screening Relevant Family History (Specify if Yes): No Relevant Social History: None Present Medications: see Short Stay Collaborative assessment Medical History: Significant History (Hyperlipidemia HTN (hypertension) Carpal tunnel syndrome, bilateral DM type 2 (diabetes mellitus, type 2)) History of Previous Operations: No relevant previous surgery Allergies: Allergies Allergy/AdvReac Type Severity Reaction Status Date / Time No Known Allergies Allergy Verified 06/29/25 07:57 Review of Systems Sugical H&P ROS: Negative: Constitution, Cardiovascular, Respiratory, Neurological, Psychiatric, Hem-Onc, Allergic/Immunologic, Gastrointestinal, Genitourinary, Musculoskeletal, Integumentary, Endocrine and Eyes/Ears/N ose/Throat Exam Surgical H&P Exam: Normal: HEENT, Normal: Heart, Normal: Lungs, Normal: Extremities, Normal: Abdomen, Normal: Skin and Normal: Neurological Plan Diagnosis/Plan: Unchanged I have reviewed the history and physical and performed a pertinent physical examination on my patient. No changes have occurred unless specified. Time Spent With Patient Time: Total time managing care of this patient today ____ minutes.
--- NOTE | 2025-06-29 08:31 | HO.OPN-COLON ---
Colonoscopy Operative Note Operative Note Date of Service: 06/29/25 Narrative: Operative Information Procedure Description: Colonoscopy Indication: screening Anesthesia: MAC COLONOSCOPY Instrument: Olympus variable stiffness pediatric scope 190L Colonoscopy Monitoring: Vital signs and clinical assessment, continuous EKG monitoring, Pulse oximetry, Carbon Dioxide monitoring and blood pressure monitoring were done throughout the procedure. Colon withdrawal time was 10 minutes. Procedure: The patient was placed in the left lateral decubitis position and pre-procedure medications were administered. After a digital rectal examination of the ano-rectum, the video colonoscope was inserted into the rectum and advanced through the colon to the cecum/TI. The colonoscope was slowly withdrawn in a retrograde panoramic fashion and the colon mucosa was carefully examined including a retroflexed view of the rectum. Findings and interventions are described below. Procedure Difficulty: easy Findings: Terminal Ileum-normal Cecum:normal Ascending Colon: 4-5 mm sessile polyp removed with cold forceps Transverse Colon -normal Descending Colon:normal Sigmoid Colon: normal Rectum: Retroflexion with small internal hemorrhoids seen, grade I, 5-7 mm sessile polyp removed with cold snare Anorectum - normal Intervention: cold snare, cold forceps Colon preparation: [place] Bowel Preparation Scale Right colon; 2 Transverse colon: 2 Left colon; 2 (0 = Unprepared colon segment with mucosa not seen due to solid stool that cannot be cleared. 1 = Portion of mucosa of the colon segment seen, but other areas of the colon segment not well seen due to staining, residual stool and/or opaque liquid. 2 = Minor amount of residual staining, small fragments of stool and/or opaque liquid, but mucosa of colon segment seen well. 3 = Entire mucosa of colon segment seen well with no residual staining, small fragments of stool or opaque liquid) Impression and Post Procedure Diagnosis: colon polyps x 2 internal hemorrhoids Plan: High fiber diet leaflet Avoid straining at stool, epsom salts and sitz bath, anusol supps or cream Repeat Colonoscopy in 5-7 years if adenomatous, 10 yrs if non pre cancerous or earlier if clinically indicated Above findings were reviewed with the patient and relevant handouts were provided if indicated.
[2025-06-29 08:33] VITALS: BP 95/54; PULSE 84; RESP 18; TEMP 36.4; O2SAT 98
[2025-06-29 08:48] VITALS: BP 123/54; PULSE 80; RESP 18; TEMP 36.3; O2SAT 100
== END 2025-06-29 09:43 | disposition home or self-care (01) ==
PROVIDERS: PCP Internal Medicine; Visit Provider Internal Medicine Gastroenterology
PROC: 0DJD8ZZ Inspection of Lower Intestinal Tract, Via Natural or Artificial Opening Endoscopic (ICD-10-PCS; CPT 45378; principal; 2025-06-29 08:20)
DX: Z12.11 Encounter for screening for malignant neoplasm of colon (principal); K64.0 First degree hemorrhoids; D12.2 Benign neoplasm of ascending colon; K63.5 Polyp of colon
CPT/HCPCS: 45380; 45385; 82947; 88305; J2003; J2704

== ENCOUNTER → 2025-06-29 07:01 | Outpatient (BNV) | payer OTHER, SELFPAY | PROVIDERS: PCP Internal Medicine; Visit Provider Internal Medicine Gastroenterology | DX: Z12.11 Encounter for screening for malignant neoplasm of colon (principal); D12.2 Benign neoplasm of ascending colon; K64.0 First degree hemorrhoids; D12.8 Benign neoplasm of rectum | CPT/HCPCS: 45380; 45385 ==